=== PATIENT | female | born 2000 | race Caucasian/White ===

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

== ENCOUNTER 2020-05-31 10:09 | Emergency (ER) | payer OTHER ==
[~2020-05-31] VITALS: Ht 172.2 cm; Wt 72.7 kg
[~2020-05-31 10:09] MED LIST: PREN-142 PO
--- NOTE | 2020-05-31 11:11 | ED GU-Female ---
General Chief Complaint: General Problems/Pain Stated Complaint: ABDOMINAL PAIN;PELVIC PAIN Nursing Triage Note: TO ED PER W/C REPORTS HAVING LOW ABD PAIN HAS BEEN HAVING PROBLEMS SINCE IUD PLACED 7 MONTHS AGO AFTER HAD VAG DELIVERY SAW FAMILY DR AT [facility] REPORTS THAT IUD WAS IN PLACE AT THAT [facility]. TODAY WOKE UP HAD SEVERE PAIN AFTER URINATING. HAS APPOINTMENT WITH HER DR ON JUN 14. Nursing Sepsis Screen: No Definite Risk Source: patient Exam Limitations: no limitations (HALLE JAMESON) History of Present Illness Date Seen by Provider: May 31, 2020 Time Seen by Provider: 10:13 Initial Comments This is a 20 y/o F who presents to the ED via private vehicle w/ complaints of bilateral lower abd pain "where my ovaries are". States she has been having similar cramping pain (with episodes of sharp pain) intermittently since getting an IUD (Mirena) in December. She had a vaginal delivery Seven months ago. Reports he pain comes and goes randomly but is worse during sex and is unrelated to her menstrual period. She has tried Ibuprofen for pain during this time (but not today) with some relief. Denies any associating sx including F, chills, N/V/D, dysuria, burning with urination, hematuria, frequency, change in vaginal discharge or abnormal odor. Pt has hx of Chlamydia infection last year in April for which she and her partner were treated. Pt has been with the same partner since then but reports neither of them have been retested since then. Her last sexual encounter was 2 days ago. States her menstrual periods have been 5wks apart since getting the IUD. Denies any medical or surgical hx. No other complaints at this time. Timing/Duration: intermittent Severity/Quality: moderate, cramping Location: other (bilateral Lower abdomen/pelvic) Radiation: none Activities at Onset: none Sexual [place] History: single partner, other (last active 2 days ago) Modifying Factors: Improves With Analgesics; Worsens With Palpation; Improves With Other (worse during intercourse) Associated Symptoms: No diaphoresis, No dysuria, No fever/chills, No loss of bladder control, No nausea/vomiting, No nocturia, No polyuria, No urinary frequency; other (no abnormal vaginal d/c or foul smell) (HALLE JAMESON) Allergies and Home Medications Allergies Coded Allergies: No Known Drug Allergies (Unverified , 08/09/19) Home Medications Hydrocodone/Acetaminophen 1 Each Tablet, 1 EACH PO Q6H Prescribed by: RMEY LEDEZMA on 05/31/20 1331 Metronidazole 500 Mg Tablet, 500 MG PO BID Prescribed by: REMY LEDEZMA on 05/31/20 1331 Vit No.124/Iron/FA 1 Each Tablet, 1 EACH PO DAILY, (Reported) Patient Home Medication List Home Medication List Reviewed: Yes (REMY LEDEZMA) Review of Systems Review of Systems Constitutional: no symptoms reported Respiratory: no symptoms reported Cardiovascular: no symptoms reported Genitourinary: denies burning (bilat pelvic/lower abd pain), denies discharge, denies dysuria, denies frequency, denies flank pain, denies hematuria; pain; denies urgency Musculoskeletal: no symptoms reported Skin: no symptoms reported (HALLE JAMESON) Past Kzppoqz-Yxaslx-Vxlscx Hx Patient Social History Alcohol Use: Occasionally Uses Recreational Drug Use: No Smoking Status: Never a Smoker 2nd Hand Smoke Exposure: No Recent Foreign Travel: No Contact w/Someone Who Travel: No Recent Infectious Disease Expo: No Recent Hopitalizations: No (HALLE JAMESON [employer]) Seasonal Allergies Seasonal Allergies: No (HALLE JAMESON [employer]) Past Medical History Surgeries: Yes (wisdom teeth) Respiratory: No Cardiac: No Neurological: No Genitourinary: No Gastrointestinal: No Musculoskeletal: No Endocrine: No HEENT: No Cancer: No Psychosocial: No Integumentary: No Blood Disorders: No (HALLE JAMESON [employer]) Physical Exam Vital Signs Vital Signs - First Documented 05/31/20 10:09 Temp 35.1 Pulse 88 Resp 18 B/P (MAP) 121/89 (100) Pulse Ox 98 O2 Delivery Room Air (REMY LEDEZMA) Vital Signs Capillary Refill : Less Than 3 Seconds (HALLE JAMESON) Height, Weight, BMI Height: 5'9.00" Weight: 157lbs. oz. 71.521610yk; 24.00 BMI Method:Stated General Appearance: WD/WN, no apparent distress HEENT: PERRL/EOMI, normal ENT inspection Cardiovascular: regular rate, rhythm, no edema, no gallop, no JVD, no murmur Respiratory: chest non-tender, lungs clear, normal breath sounds, no respiratory distress Gastrointestinal: normal bowel sounds, soft, no organomegaly, no pulsatile mass; No distended, No guarding, No rebound; tenderness (to palpation of bilat lower abd ) Back: normal inspection, no CVA tenderness, no vertebral tenderness Neurologic/Psychiatric: alert, oriented x 3 Skin: normal color, warm/dry ([facility] [employer] [facility]) Progress/Results/Core Measures Suspected Sepsis Recent Fever Within 48 Hours: No Infection Criteria Present: None New/Unexplained Altered Menta: No Sepsis Screen: No Definite Risk SIRS Temperature: Pulse: 88 Respiratory Rate: 18 Blood Pressure 121 /89 Mean: 100 ([facility]) Results/Orders Lab Results Laboratory Tests Test 05/31/20 11:21 05/31/20 12:51 Range/Units Urine Color YELLOW Urine Clarity CLEAR Urine pH 6.0 5-9 Urine Specific Soldier 1.020 1.016-1.022 Urine Protein NEGATIVE NEGATIVE Urine Glucose (UA) NEGATIVE NEGATIVE Urine Ketones NEGATIVE NEGATIVE Urine Nitrite NEGATIVE NEGATIVE Urine Bilirubin NEGATIVE NEGATIVE Urine Urobilinogen 0.2 < = 1.0 MG/DL Urine Leukocyte Esterase TRACE H NEGATIVE Urine RBC (Auto) NEGATIVE NEGATIVE Urine RBC NONE /HPF Urine WBC 0-2 /HPF Urine Squamous Epithelial Cells 2-5 /HPF Urine Crystals NONE /LPF Urine Bacteria FEW H /HPF Urine Casts NONE /LPF Urine Mucus SMALL H /LPF Urine Culture Indicated NO (REMY LEDEZMA) Micro Results Microbiology 05/31/20 Wet Prep - Final, Complete (REMY LEDEZMA) My Orders Orders - REMY LEDEZMA Ibuprofen Tablet (Motrin Tablet) (05/31/20 11:45) (REMY LEDEZMA) Medications Given in ED Current Medications Medications Dose Ordered Sig/Evelyn Route Start Time Stop Time Status Last Admin Dose Admin Ibuprofen 800 mg ONCE ONCE PO 05/31/20 11:45 05/31/20 11:46 DC 05/31/20 12:03 800 MG (REMY LEDEZMA) Vital Signs/I&O 05/31/20 05/31/20 10:09 13:44 Temp 35.1 Pulse 88 87 Resp 18 18 B/P (MAP) 121/89 (100) 119/63 Pulse Ox 98 98 O2 Delivery Room Air Room Air (REMY LEDEZMA) Vital Signs/I&O Capillary Refill : Less Than 3 Seconds (HALLE JAMESON MANOLO SMITH) Blood Pressure Mean: 100 Progress Note : Time: 13:35 Progress Note I have seen and evaluated the patient alongside med student and agree with above as indicated. I've informed the patient of her laboratory and imaging studies. We will start her on pain medication and Flagyl for ruptured ovarian cyst and bacterial vaginosis. She agrees with plan of care, plans for discharge, close follow-up was instructed. (REMY LEDEZMA) ECG Initial ECG Impression Date: May 31, 2020 (REMY LEDEZMA) Diagnostic Imaging Diagonstic Imaging: Ultrasound Plain Films/CT/US/NM/MRI: pelvis Comments [facility], [place] NAME: DESHAUN [facility] REC#: [id number] PT STATUS: REG ER : 2000 PHYSICIAN: NEDA PARRISH MD ADMIT DATE: 05/31/20/ER Draft Date of Exam:05/31/20 US NON OB PELVIS COMP/TRANSVAG PROCEDURE: US Non-ob pelvis comp/trans. TECHNIQUE: Multiple realtime grayscale images were obtained of the pelvis in various projections endovaginally. Transabdominal imaging was also performed. INDICATION: Pelvic pain. Uterus is anteverted measuring 8.2 x 4.9 x 5.9 cm. Endometrium is 3 mm in thickness. There is an IUD which appears to be appropriately centered in the endometrial canal. No myometrial mass is detected. Left ovary was not visualized. The right ovary measures 4.8 x 3.4 x 3.6 cm. There is a partially collapsed cyst in the right ovary approximately 3.1 x 1.1 cm. Moderate free fluid is present. IMPRESSION: 1. The IUD is appropriately centered in the endometrial canal. 2. Partially collapsed right ovarian cyst measuring 3.1 x 1.1 cm. Moderate free fluid is present. Left ovary was not visualized. Dictated on workstation # [id number] Dict: 05/31/20 1234 Trans: 05/31/20 1241 CVB [id number] Interpreted by: RAFAEL TIMMONS MD Electronically signed by: (HALLE JAMESON [facility]) Departure Impression Primary Impression: Bacterial vaginosis Additional Impression: Ruptured ovarian cyst Disposition: HOME, SELF-CARE Condition: Stable/Unchanged Departure-Patient Inst. Decision time for Depature: 13:29 (REMY LEDEZMA) Referrals: [facility] (PCP/Family) Primary Care Physician Patient Instructions: Bacterial Vaginosis, Ovarian Cyst (DC) Add. Discharge Instructions: Take medication as directed. Follow-up with your CLIMATOLOGY PROFESSOR within 1 week for recheck. Return back to the emergency room for worsening symptoms or concerns as needed. All discharge instructions reviewed with patient and/or family. Voiced understanding. Scripts Hydrocodone/Acetaminophen (Hydrocodone-Acetamin 5-325 mg) 1 Each Tablet 1 EACH PO Q6H for 3 Days, #15 TAB Prov: REMY LEDEZMA 05/31/20 Metronidazole (Flagyl) 500 Mg Tablet 500 MG PO BID for 7 Days, #14 TAB Prov: REMY LEDEZMA 05/31/20 HALLE JAMESON [facility] May 31, 2020 11:11 REMY LEDEZMA May 31, 2020 13:31
--- NOTE | 2020-05-31 11:14 | NUR ---
AMB TO ROOM TO TRY AND OBTAIN UA. Addendum: 05/31/20 at 1115 by PMCCLURE PATIENT WILL UPDATE PARENT.
[2020-05-31 11:52] LABS: CLARITY,URINE CLEAR; COLOR,URINE YELLOW
[2020-05-31 11:53] LABS: BACTERIA,URINE FEW /HPF; BILIRUBIN,URINE NEGATIVE (NEGATIVE); GLUCOSE, URINE (UA) NEGATIVE (NEGATIVE); KETONES,URINE NEGATIVE (NEGATIVE); LEUKOCYTE ESTERASE ,URINE TRACE (NEGATIVE); NITRITE,URINE NEGATIVE (NEGATIVE); PROTEIN,URINE NEGATIVE (NEGATIVE); WBC,URINE 0-2 /HPF
--- NOTE | 2020-05-31 11:59 | NUR ---
PATIENT STATES SHE WILL KEEP FAMILY UPDATED
[2020-05-31] MEDS: IBUPROFEN 800 MG (MOTRIN) TAB PO ONE (12:03)
--- NOTE | 2020-05-31 12:15 | NUR ---
TO GIVE PATIENT SWABS TO DO SELF SWAB FOR STD. PER DR OLSON.
--- NOTE | 2020-05-31 12:42 | Diagnostic Imaging Report ---
PROCEDURE: US Non-ob pelvis comp/trans. TECHNIQUE: Multiple realtime grayscale images were obtained of the pelvis in various projections endovaginally. Transabdominal imaging was also performed. INDICATION: Pelvic pain. Uterus is anteverted measuring 8.2 x 4.9 x 5.9 cm. Endometrium is 3 mm in thickness. There is an IUD which appears to be appropriately centered in the endometrial canal. No myometrial mass is detected. Left ovary was not visualized. The right ovary measures 4.8 x 3.4 x 3.6 cm. There is a partially collapsed cyst in the right ovary approximately 3.1 x 1.1 cm. Moderate free fluid is present. IMPRESSION: 1. The IUD is appropriately centered in the endometrial canal. 2. Partially collapsed right ovarian cyst measuring 3.1 x 1.1 cm. Moderate free fluid is present. Left ovary was not visualized. Dictated by: Dictated on workstation # [id number]
[2020-05-31] MEDS ORDERED: HYDR-3812 PO (13:31)
[2020-05-31] MEDS ORDERED: METR500T PO (13:31)
[2020-05-31 13:44] VITALS: BP 119/63
== END 2020-05-31 13:44 | disposition home or self-care (01) ==
LOC: EDUNIT# 10:09 → ER 10:11
DX: N76.0 Acute vaginitis (principal); N83.201 Unspecified ovarian cyst, right side
CPT/HCPCS: 36415; 76830; 76856; 81000; 84703; 87210; 87491; 87591

== ENCOUNTER 2021-01-21 20:23 | Emergency (ER) | payer MEDICAID ==
[~2021-01-21 20:23] MED LIST changes: +ACHD5005 PO; +METR500T PO
== END 2021-01-21 20:45 | disposition left against medical advice (07) ==
LOC: EDUNIT# 20:23 → ER 20:26
DX: R51.9 Headache, unspecified (principal); R42 Dizziness and giddiness

== ENCOUNTER → 2021-11-07 | Outpatient (CLI) | payer MEDICAID ==
[~2021-11-07] MED LIST changes: +GADOTERATE 0.5 MMOL/ML (CLARISCAN) 15 ML VIAL IV ONE
--- NOTE | 2021-11-07 11:59 | Diagnostic Imaging Report ---
PROCEDURE: MR imaging of the brain with and without contrast. TECHNIQUE: Multiplanar, multisequence MR imaging of the brain was performed with and without contrast. INDICATION: Headaches and tinnitus. COMPARISON: No prior studies are available for comparison. FINDINGS: Ventricles and sulci are within normal limits. No sulcal effacement or midline shift is identified. No acute intra-axial or extra-axial hemorrhage is detected. There is no diffusion restriction. The normal expected flow-voids within the carotid siphons are seen. No white matter lesions are seen. The corpus callosum is unremarkable. The sella and parasellar structures are unremarkable. There is no abnormal enhancement following contrast administration. IMPRESSION: Unremarkable pre- and post-contrast MRI of the brain. Dictated by: Dictated on workstation # [id number]
== END ==
LOC: RAD 09:30
PROVIDERS: ATTEND Otolaryngology Otolaryngology/Facial Plastic Surgery
DX: H93.19 Tinnitus, unspecified ear (principal); R51.9 Headache, unspecified
CPT/HCPCS: 70553

== ENCOUNTER 2022-05-18 22:55 | Emergency (ER) | payer MEDICAID ==
[~2022-05-18 22:55] MED LIST changes: -GADOTERATE 0.5 MMOL/ML (CLARISCAN) 15 ML VIAL IV ONE
== END 2022-05-18 23:40 | disposition left against medical advice (07) ==
LOC: EDUNIT# 22:55 → ER 22:56
DX: R10.2 Pelvic and perineal pain (principal)